=== PATIENT | male | born 1995 | race Caucasian/White ===

== ENCOUNTER → 2021-10-26 09:44 | Outpatient (BNVA) | payer SELFPAY | PROVIDERS: Visit Provider Internal Medicine | DX: Z02.79 Encounter for issue of other medical certificate (principal) ==

== ENCOUNTER → 2023-09-26 08:50 | Outpatient (BNVA) | payer SELFPAY | PROVIDERS: Visit Provider Physician Assistant | DX: Z02.79 Encounter for issue of other medical certificate (principal) ==

== ENCOUNTER 2025-05-08 02:07 | Emergency (ER) | payer BC, SELFPAY ==
[2025-05-08 02:15] VITALS: BP 145/99; PULSE 78; RESP 17; TEMP 36.9; O2SAT 99; BMI 28.4
[2025-05-08] MEDS: Erythromycin Base 0.5% Oph Oin 1 GM TUBE 1 CM EYE-BOTH (02:45)
[2025-05-08] MEDS: Tetracaine HCl/PF 0.5% Oph Sol 4 ML DROPS 1 DROP EYE-BOTH (02:46)
[2025-05-08] MEDS: Fluorescein Sodium STRIP 1 STRIP EYE-BOTH (02:46)
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
[2025-05-08 03:10] VITALS: BP 145/99; PULSE 78; RESP 17; TEMP 36.9; O2SAT 99
== END 2025-05-08 03:10 | disposition home or self-care (01) ==
PROVIDERS: Emergency Provider Emergency Medicine
DX: H57.13 Ocular pain, bilateral (principal)
CPT/HCPCS: 99283

== ENCOUNTER → 2025-09-11 08:18 | Outpatient (BNVA) | payer SELFPAY | PROVIDERS: Visit Provider Physician Assistant Medical | DX: Z02.79 Encounter for issue of other medical certificate (principal) ==